=== PATIENT | female | born 1980 | race Caucasian/White ===

== ENCOUNTER 2020-02-13 | Inpatient (IN) | payer OTHER | END 2020-02-14 16:35 | disposition home or self-care (01) | DRG 785 | PROVIDERS: ADMIT Specialist | PROC: 10D00Z1 Extraction of Products of Conception, Low, Open Approach (ICD-10-PCS; principal; 2020-02-13) | PROC: 0UB70ZZ Excision of Bilateral Fallopian Tubes, Open Approach (ICD-10-PCS; 2020-02-13) | PROC: 3E0134Z Introduction of Serum, Toxoid and Vaccine into Subcutaneous Tissue, Percutaneous Approach (ICD-10-PCS; 2020-02-13) | DX: O34.211 Maternal care for low transverse scar from previous cesarean delivery (principal); Z3A.40 40 weeks gestation of pregnancy; Z37.0 Single live birth; Z30.2 Encounter for sterilization; Z23 Encounter for immunization ==